=== PATIENT | male | born 2005 | race Asian ===

== ENCOUNTER 2025-04-15 07:10 | Inpatient (IN) | payer OTHER ==
[~2025-04-15] VITALS: Ht 167.6 cm; Wt 52.4 kg
[2025-04-15 07:42] LABS: PLATELET COUNT (AUTO) 257 K/uL (150-450); RED BLOOD CELL COUNT(AUTO) 5.54 MIL/uL (4.50-5.90); RED CELL DISTRIBUTION WIDTH 13.2 % (11.5-14.5); WHITE BLOOD COUNT (AUTO) 8.1 K/uL (4.5-11.0)
[2025-04-15 07:52] LABS: CALCIUM, TOTAL 10.0 mg/dL (8.8-10.5); CREATININE 1.10 mg/dL (0.60-1.30); GLOMERULAR FILTR. RATE CALC > 60 mL/min (>60); GLUCOSE,RANDOM 91 mg/dL (70-110); SODIUM SERUM 140 mmol/L (136-145); UREA NITROGEN, BLOOD 14 mg/dL (7-18)
[2025-04-15 10:57] LABS: APPEARANCE,URINE CLEAR (CLEAR); GLUCOSE, URINE (UA) NEGATIVE (NEGATIVE); LEUKOCYTE ESTERASE ,URINE NEGATIVE (NEGATIVE); NITRATE,URINE NEGATIVE (NEGATIVE); OCCULT BLOOD,URINE NEGATIVE (NEGATIVE); PH,URINE DRUG SCREEN 5.5 (5.0-8.0); SPECIFIC GRAVITIY, URINE 1.032 (1.003-1.030)
[2025-04-15 11:09] LABS: ALCOHOL, URINE DRUG SCREEN NEGATIVE (NEGATIVE); AMPHET/METH SCREEN,URINE NEGATIVE (NEGATIVE); BARBITURATE SCREEN, URINE NEGATIVE (NEGATIVE); CANNABINOID SCREEN,URINE NEGATIVE (NEGATIVE); COCAINE SCREEN,URINE NEGATIVE (NEGATIVE); METHADONE SCREEN, URINE NEGATIVE (NEGATIVE)
[2025-04-15 14:00] VITALS: BP 94/73; PULSE 92; RESP 18; TEMP 98; O2SAT 95
[2025-04-15] MEDS ORDERED: BISACODYL 10 MG RECTAL RECTAL SUPPOSITORY PR PRN (15:00)
[2025-04-15] MEDS ORDERED: ACETAMINOPHEN 325 MG TABLET PO PRN (15:00)
[2025-04-15] MEDS ORDERED: MAGNESIUM HYDROXIDE SUSPENSION 30 ML UDCUP PO PRN (15:00)
[2025-04-15] MEDS ORDERED: ONDANSETRON HCL 4 MG/2 ML VIAL IVP PRN (15:00)
[2025-04-15] MEDS: HEPARIN SODIUM,PORCINE 5,000 UNITS/ML VIAL SQ SCH (16:00)
[2025-04-15 20:00] VITALS: BP 108/71; PULSE 79; RESP 18; TEMP 97.5; O2SAT 99
[2025-04-15] MEDS: DOCUSATE SODIUM 100 MG CAPSULE PO SCH (21:00)
[2025-04-16 04:00] VITALS: BP 96/64; PULSE 69; RESP 18; TEMP 97.7; O2SAT 97
[2025-04-16 08:00] VITALS: BP 98/57; PULSE 70; RESP 18; TEMP 97.8; O2SAT 98
[2025-04-16] MEDS: PANTOPRAZOLE SODIUM 40 MG DR TABLET PO SCH (08:32)
[2025-04-16 19:55] VITALS: BP 106/59; PULSE 82; RESP 18; TEMP 97.7; O2SAT 99
[2025-04-17] MEDS: ZOLPIDEM TARTRATE 5 MG TABLET PO PRN (00:44)
[2025-04-17 08:28] VITALS: BP 91/66; PULSE 75; RESP 18; TEMP 97.5; O2SAT 97
[2025-04-17 20:00] VITALS: BP 99/56; PULSE 60; RESP 18; TEMP 97.7; O2SAT 100
[2025-04-18 04:40] VITALS: BP 90/55; PULSE 69; RESP 18; TEMP 97.5; O2SAT 98
[2025-04-18 08:40] VITALS: BP 94/63; PULSE 60; RESP 18; TEMP 98; O2SAT 100
== END 2025-04-18 18:25 | DRG 885 ==
LOC: EMS 07:14 → EDH 12:09 → 6S 14:25
PROVIDERS: ADMIT Internal Medicine; ATTEND Internal Medicine
DX: F33.0 Major depressive disorder, recurrent, mild (principal); R45.851 Suicidal ideations; K59.00 Constipation, unspecified; F43.21 Adjustment disorder with depressed mood
CPT/HCPCS: 80048; 80307; 81003; 85025; 99285; G0480; J1644